=== PATIENT | male | born 2000 | race Caucasian/White ===

== ENCOUNTER 2020-07-25 07:21 | Inpatient (IN) | payer BC, OTHER ==
[2020-07-25 07:39] VITALS: BMI 22.6
[2020-07-25] MEDS ORDERED: diazePAM CARPU-JECT 10 MG/2 ML DISP.SYRIN IVPUSH ONE ×5 (07:59→11:06)
[2020-07-25] MEDS ORDERED: diazePAM CARPU-JECT 10 MG/2 ML DISP.SYRIN ONE ×4 (08:05→11:13)
[2020-07-25 08:23] LABS: PH,URINE 7.5 (5.0-8.0); URINE APPEARANCE CLEAR; URINE BILIRUBIN NEGATIVE (NEGATIVE); URINE COLOR YELLOW; URINE GLUCOSE (UA) NEGATIVE (NEGATIVE); URINE KETONE NEGATIVE (NEGATIVE); URINE LEUK ESTERASE NEGATIVE (NEGATIVE); URINE NITRITE NEGATIVE (NEGATIVE); URINE PROTEIN NEGATIVE (NEGATIVE); URINE UROBILINOGEN 0.2 mg/dL (0.2-1.0)
[2020-07-25 08:24] LABS: BASO % 0.4 % (0-2.0); EOS % 0.1 % (0-4.5); HEMATOCRIT 43.5 % (35.4-49); HEMOGLOBIN 15.4 GM/dL (11.7-16.9); LYMPH % 14.4 % (8-40); MCH 32.4 pg (25.7-33.7); MCHC 35.5 g/dl (32.0-35.9); MEAN CELL VOLUME 91.2 fl (80-96); MEAN PLT VOLUME 10.4 fl (7.5-11.1); MONO % 5.4 % (3.8-10.2); NEUT % 79.7 % (42.8-82.8); PLATELET COUNT 113 K/MM3 (134-434); RBC 4.77 M/mm3 (4.00-5.60); RDW 12.8 % (11.9-15.9); WHITE BLOOD COUNT 7.1 K/mm3 (4.0-10.0)
[2020-07-25 08:32] LABS: CHLORIDE 103 mmol/L (98-107); SODIUM 139 mmol/L (136-145)
[2020-07-25 08:34] LABS: OPIATES, URI NEGATIVE ng/ml (CUTOFF=300); PHENCYCLIDINE,URINE NEGATIVE ng/ml (CUTOFF=25)
[2020-07-25 08:35] LABS: COCAINE, UR NEGATIVE ng/ml (CUTOFF=300); METHADONE, UR NEGATIVE ng/ml (CUTOFF=300); URINE AMPHETAMINES NEGATIVE ng/ml (CUTOFF=500); URINE BARBITURATES NEGATIVE ng/ml (CUTOFF=200); URINE BENZODIAZEPINES NEGATIVE ng/ml (CUTOFF=200)
[2020-07-25 08:35] LABS: ALBUMIN 4.4 g/dl (3.4-5.0); ANION GAP 6 MMOL/L (8-16); BLOOD UREA NITROGEN 14.9 mg/dL (7-18); CO2 30 mmol/L (21-32); GLUCOSE,RANDOM 122 mg/dL (74-106); MAGNESIUM 1.7 mg/dL (1.8-2.4)
[2020-07-25 08:38] LABS: SGOT/AST 18 U/L (15-37); SGPT/ALT 31 U/L (13-61)
[2020-07-25 08:39] LABS: BILIRUBIN,TOTAL 0.4 mg/dL (0.2-1); TOT PROT 7.4 g/dl (6.4-8.2)
[2020-07-25 08:41] LABS: ALK PHOS 73 U/L (45-117)
[2020-07-25] MEDS ORDERED: LACTATED RINGERS SOLUTION 1,000 ML/1,000 ML INFUS.BAG IV STA (09:01)
[2020-07-25] MEDS ORDERED: MAGNESIUM SULF 50% (8.12 MEQ/2 ML-1 GM VIAL) IVPB ONE (09:07)
[2020-07-25 09:20] LABS: INR 1.02 (0.83-1.09); PROTHROMBIN TIME (PATIENT) 12.5 SEC (9.7-13.0)
[2020-07-25] MEDS ORDERED: MAGNESIUM 1GM/D5W - 1 GM/100 ML IVPB IVPB ONE (09:25)
[2020-07-25] MEDS ORDERED: diazePAM CARPU-JECT 10 MG/2 ML DISP.SYRIN IVPUSH PRN (12:27)
[2020-07-25 14:25] LABS: LACTIC ACID 3.1 mmol/L (0.4-2.0)
[2020-07-25] MEDS: SODIUM CHLORIDE 1,000 ML IV SCH (16:08)
[2020-07-25] MEDS ORDERED: DIVALPROEX SODIUM 500 MG TABLET E.C. PO SCH (22:00)
[2020-07-26] MEDS: SODIUM CHLORIDE 1,000 ML IV SCH (03:17)
[2020-07-26 08:39] LABS: BASO % 0.6 % (0-2.0); EOS % 0.6 % (0-4.5); LYMPH % 34.8 % (8-40); MEAN CELL VOLUME 91.6 fl (80-96); MEAN PLT VOLUME 10.5 fl (7.5-11.1); MONO % 7.7 % (3.8-10.2); NEUT % 56.3 % (42.8-82.8); PLATELET COUNT 111 K/MM3 (134-434); RBC 4.26 M/mm3 (4.00-5.60); RDW 12.9 % (11.9-15.9); WHITE BLOOD COUNT 5.5 K/mm3 (4.0-10.0)
[2020-07-26 09:09] LABS: CALCIUM 8.3 mg/dL (8.5-10.1)
[2020-07-26 09:10] LABS: BLOOD UREA NITROGEN 12.1 mg/dL (7-18); MAGNESIUM 1.7 mg/dL (1.8-2.4)
[2020-07-26 09:13] LABS: CREATININE 0.8 mg/dL (0.55-1.3); PHOSPHOROUS 2.3 mg/dL (2.5-4.9)
[2020-07-26] MEDS ORDERED: DIVALPROEX SODIUM 250 MG TABLET E.C. PO SCH (10:00)
[2020-07-26] MEDS ORDERED: ENOXAPARIN NA (PORCINE) 40 MG/0.4 ML DISP.SYRIN SQ SCH (10:00)
[2020-07-26 10:20] VITALS: BP 115/83; PULSE 76; TEMP 98.3
[2020-07-26] MEDS ORDERED: MAGNESIUM OXIDE 400 MG TABLET (FP) PO ONE (10:30)
[2020-07-26] MEDS ORDERED: diphenhydrAMINE HCL 12.5 MG/5 ML UNIT-DOSE CUPS PO PRN (11:09)
[2020-07-26 11:45] LABS: LACTIC ACID 2.4 mmol/L (0.4-2.0)
== END 2020-07-26 13:02 | disposition home or self-care (01) | DRG 57 ==
LOC: JER 07:21 → JERBED 08:35 → J4S 12:50
PROVIDERS: ADMIT Internal Medicine; ATTEND Nurse Practitioner Acute Care
DX: G25.79 Other drug induced movement disorders (principal); F84.0 Autistic disorder; D68.51 Activated protein C resistance; F15.23 Other stimulant dependence with withdrawal; R00.0 Tachycardia, unspecified; F41.9 Anxiety disorder, unspecified; R56.9 Unspecified convulsions; E05.90 Thyrotoxicosis, unspecified without thyrotoxic crisis or storm; R29.2 Abnormal reflex; I10 Essential (primary) hypertension
CPT/HCPCS: 36415; 71045-TC-FY; 80048; 80053; 80164; 80307; 81003; 82550; 83036; 83605; 83735; 84100; 84439; 84443; 84484; 85025; 85379; 85610; 86769; 93005; 93010; 99291; C9803; U0003; U0005